=== PATIENT | female | born 1955 | race Caucasian/White ===

== ENCOUNTER 2017-11-17 05:39 | Inpatient (IN) | payer OTHER ==
[~2017-11-17 05:39] MED LIST: DEPAKOTE ER500 MG PO; LIPITOR20 MG PO; LOSARTAN-HCTZ1 EACH PO; SYNTHROID112 MCG PO; TEMAZEPAM15 MG PO; TOPROL XL50 M1 PO; ZYPREXA20 MG PO
[2017-11-17] MEDS ORDERED: ULTRACET PO (10:09)
[2017-11-17] MEDS ORDERED: MACROBID 100 M100 MG PO (10:11)
== END 2017-11-18 14:29 | disposition home or self-care (01) | DRG 747 ==
LOC: CIR.AMB 05:39 → MEDI 12:35 → O/R 12:35 → MEDI 16:59
PROVIDERS: Obstetrics & Gynecology Gynecology
PROC: 0UTG7ZZ Resection of Vagina, Via Natural or Artificial Opening (ICD-10-PCS; 2017-11-17)
PROC: 0UQG7ZZ Repair Vagina, Via Natural or Artificial Opening (ICD-10-PCS; 2017-11-17)
PROC: 0UW Female Reproductive System, Revision (ICD-10-PCS; 2017-11-17)
PROC: 0UQF7ZZ Repair Cul-de-sac, Via Natural or Artificial Opening (ICD-10-PCS; principal; 2017-11-17 09:00)
DX: N81.11 Cystocele, midline (principal); N81.6 Rectocele; N39.3 Stress incontinence (female) (male)

== ENCOUNTER 2021-04-26 07:22 | Outpatient (CLI) | payer OTHER ==
[~2021-04-26 07:22] MED LIST changes: +MACROBID 100 M100 MG PO; +ULTRACET PO
== END 2021-04-26 07:30 | disposition home or self-care (01) ==
LOC: NUCLEAR 07:22
PROVIDERS: ATTEND Internal Medicine
DX: I25.9 Chronic ischemic heart disease, unspecified (principal)
CPT/HCPCS: 78452; A9500; Q9965